=== PATIENT | male | born 1950 | race Caucasian/White ===

== ENCOUNTER 2018-08-22 14:27 | Inpatient (IN) | payer OTHER ==
[~2018-08-22] VITALS: Ht 172.7 cm; Wt 111.1 kg
[2018-08-22] VITALS (10 sets, daily range): BP systolic 116–146; BP diastolic 53–79
[2018-08-22] MEDS ORDERED: ceFAZolin 2gm in dextrose, iso 100 ML IV ONE (14:45)
[2018-08-22] MEDS ORDERED: normal saline 1000ml 1,000 ML IV SCH (14:45)
[2018-08-22] MEDS ORDERED: ASPI81TA52 PO (14:58)
[2018-08-22] MEDS ORDERED: ATOR10TA87 PO (14:59)
[2018-08-22] MEDS ORDERED: LOSA50TA64 PO (14:59)
[2018-08-22] MEDS ORDERED: METO-539 PO (15:00)
[2018-08-22] MEDS ORDERED: MULT-955 PO (15:01)
[2018-08-22] MEDS ORDERED: SPIR25TA5 PO (15:01)
[2018-08-22] MEDS ORDERED: NITR0.4T51 SL (15:02)
[2018-08-22] MEDS ORDERED: iohexol 350 MG/ML 50ML vial IV ONE ×2 (15:38→17:47)
[2018-08-22] MEDS ORDERED: lidocaine 1%/epinephrine 1:100,000 injection 50ml vial ONE (15:38)
[2018-08-22] MEDS ORDERED: fentaNYL/PF 50MCG/1 ML 2ML syringe ONE ×4 (15:38→19:10)
[2018-08-22] MEDS ORDERED: ceFAZolin 1000mg inj ONE (15:38)
[2018-08-22] MEDS ORDERED: midazolam 2 mg/2 ml injection ONE ×5 (15:38→19:05)
[2018-08-22] MEDS ORDERED: cefazolin/dext.iso 2gm/100ml 100 ML IV ONE (15:39)
--- NOTE | 2018-08-22 19:40 | NUR ---
Received report from NEGAR Mueller from the laboratory specialist regarding transfer of patient to [facility] unit. NEGAR Mueller reports that patient is awake, alert and oriented and appropriate. Reports that patient has had 2 G of Ancef, 9mg of Versed and 350 mcg of Versed. Will await arrival of patient to the floor.
--- NOTE | 2018-08-22 19:50 | NUR ---
Patient arrived to the [facility]E unit on a gurney, he is accompanied by his spouse and [id number]. Patient is awake, alert and oriented. He has no complaints of pain. He has NS running at 20 mL/hr. Assessment completed, assumed care of patient.
[2018-08-22] MEDS ORDERED: nitroGLYCERIN 0.4mg SUBLingual tab SL PRN (20:00)
[2018-08-22] MEDS: ceFAZolin 1GM/D5W- ADD-VANTAGE 50 ML IV SCH (20:32)
[2018-08-23] MEDS: ceFAZolin 1GM/D5W- ADD-VANTAGE 50 ML IV SCH ×2 (01:45→07:58)
[2018-08-23 02:00] VITALS: BP 143/87
[2018-08-23 06:00] VITALS: BP 125/70
--- NOTE | 2018-08-23 06:00 | NUR ---
Problems reprioritized. Patient report given, questions answered & plan of care reviewed with NEGAR Green.
[2018-08-23] MEDS ORDERED: CEPH500C5 PO (06:45)
[2018-08-23] MEDS ORDERED: atorvastatin 10mg tablet PO SCH (08:00)
[2018-08-23] MEDS ORDERED: metoprolol succinate 25mg (24-HOUR) SR. Tablet PO SCH (08:00)
[2018-08-23] MEDS ORDERED: multivitamins, therapeutics tablet PO SCH (08:00)
[2018-08-23] MEDS ORDERED: losartan 50mg tablet PO SCH (08:00)
[2018-08-23] MEDS ORDERED: aspirin 81mg tablet.DR PO SCH (08:00)
[2018-08-23] MEDS ORDERED: spironolactone 25 MG tablet PO SCH (08:30)
--- NOTE | 2018-08-23 09:00 | NUR ---
PROVIDED PATIENT WITH DISCHARGE INSTRUCTIONS WELL NEW PRESCRIPTION [facility]. PATIENT GIVEN HIS BOOKLET ABOUT HIS AICD/PACEMAKER WELL HIS IDENTIFICATION CARD TO KEEP IN HIS [place] AT ALL TIMES. IV REMOVED, CATHETER INTACT WITH MINIMAL BLEEDING CLEAN GAUZE APPLIED AND SECURED WITH TAPE. PATIENT AWARE HE HAS A FOLLOW UP APPOINTMENT WITH DR. CONCEPCION ON 09/02 AT 1010AM. PATIENT MADE AWARE HE NEEDS TO WEAR HIS SLING AND RESTRICT ACTIVITY OF HIS LEFT ARM UNTIL HIS FOLLOW UP APPOINTMENT AND TO CALL DR. CONCEPCION'S OFFICE OR GO TO THE ER IF THERE ARE ANY SIGNS OF BLEEDING, BRUISING, OR INFECTION TO HIS PACEMAKER SITE. PATIENT AND HIS DENIED ANY FURTHER QUESTIONS OR CONCERNS. ACCOMPANIED DOWN VIA WHEELCHAIR TO GO HOME WITH HIS VIA PRIVATE VEHICLE.
== END 2018-08-23 12:06 | disposition home or self-care (01) | DRG 227 ==
LOC: SSTAY O 14:27 → MED 3N 19:59
PROVIDERS: ADMIT Internal Medicine Interventional Cardiology; ATTEND Internal Medicine Interventional Cardiology
PROC: 0JH609Z Insertion of Cardiac Resynchronization Defibrillator Pulse Generator into Chest Subcutaneous Tissue and Fascia, Open Approach (ICD-10-PCS; principal; 2018-08-22)
PROC: 02HL3KZ Insertion of Defibrillator Lead into Left Ventricle, Percutaneous Approach (ICD-10-PCS; 2018-08-22)
PROC: 02HK3KZ Insertion of Defibrillator Lead into Right Ventricle, Percutaneous Approach (ICD-10-PCS; 2018-08-22)
DX: I11.0 Hypertensive heart disease with heart failure (principal); E78.00 Pure hypercholesterolemia, unspecified; I27.20 Pulmonary hypertension, unspecified; I50.22 Chronic systolic (congestive) heart failure; I25.10 Atherosclerotic heart disease of native coronary artery without angina pectoris; F43.10 Post-traumatic stress disorder, unspecified; I43 Cardiomyopathy in diseases classified elsewhere; E78.5 Hyperlipidemia, unspecified; Z79.82 Long term (current) use of aspirin; Z79.899 Other long term (current) drug therapy; Z95.5 Presence of coronary angioplasty implant and graft
CPT/HCPCS: 33225; 33249; 87070; 93005; 99152; 99153; A4620; C1882; C1887; C1895; C1900; G0378; J0690; J2250; J3010; J3490; J7030; Q9967

== ENCOUNTER 2020-02-14 13:07 | Outpatient (CLI) | payer OTHER ==
[~2020-02-14 13:07] MED LIST: ASPI81TA52 PO; ATOR10TA87 PO; LOSA50TA64 PO; METO-539 PO; MULT-955 PO; NITR0.4T51 SL; SPIR25TA5 PO
== END 2020-02-14 23:59 | disposition home or self-care (01) ==
LOC: RAD 13:07
PROVIDERS: ATTEND Student in an Organized Health Care Education/Training Program
DX: R13.12 Dysphagia, oropharyngeal phase (principal); R47.1 Dysarthria and anarthria; I69.391 Dysphagia following cerebral infarction; I69.322 Dysarthria following cerebral infarction
CPT/HCPCS: 74230